=== PATIENT | female | born 1995 | race Caucasian/White ===

== ENCOUNTER 2024-12-24 09:20 | Emergency (ER) | payer BC ==
[~2024-12-24] VITALS: Ht 160 cm; Wt 65.8 kg
[2024-12-24] MEDS ORDERED: KETOROLAC TROMETHAMINE 15 MG INJ ONE (09:34)
[2024-12-24] MEDS: KETOROLAC TROMETHAMINE 15 MG INJ IM ONE (09:39)
[2024-12-24] MEDS ORDERED: CYCL5TAB PO (10:17)
[2024-12-24] MEDS ORDERED: LIDO30AD10 TP (10:17)
[2024-12-24 10:31] VITALS: BP 118/68; O2SAT 98
== END 2024-12-24 10:31 | disposition home or self-care (01) ==
LOC: ER 09:20
DX: S46.012A Strain of muscle(s) and tendon(s) of the rotator cuff of left shoulder, initial encounter (principal); Z88.0 Allergy status to penicillin; Z88.1 Allergy status to other antibiotic agents; Z88.8 Allergy status to other drugs, medicaments and biological substances; Z91.041 Radiographic dye allergy status; Z86.79 Personal history of other diseases of the circulatory system; X58.XXXA Exposure to other specified factors, initial encounter; Y93.89 Activity, other specified; Y92.89 Other specified places as the place of occurrence of the external cause; Y99.8 Other external cause status
CPT/HCPCS: 99283; 73030; 96372; J1885; A4606; A4663